=== PATIENT | male | born 1945 | race Caucasian/White ===

== ENCOUNTER → 2018-09-21 13:37 | Outpatient (CLI) | payer MEDICARE, BC, SELFPAY ==
[2018-09-21 19:17] LABS: Prostate Specific Antigen < 0.064 ng/mL (0.10-4.00)
== END ==
PROVIDERS: PCP Internal Medicine; Visit Provider Urology
DX: Z85.46 Personal history of malignant neoplasm of prostate (principal)
CPT/HCPCS: 36415; 84153

== ENCOUNTER → 2020-03-17 14:15 | Outpatient (CLI) | payer MEDICARE, SELFPAY ==
[2020-03-19 00:21] LABS: SARS CoV19 IgG Negative (Negative)
== END ==
PROVIDERS: PCP Internal Medicine; Referring Provider Internal Medicine; Visit Provider Internal Medicine
DX: Z03.818 Encounter for observation for suspected exposure to other biological agents ruled out (principal)
CPT/HCPCS: 36415; 86769

== ENCOUNTER → 2020-05-11 14:18 | Outpatient (CLI) | payer MEDICARE, SELFPAY ==
[2020-05-11 15:57] LABS: Prostate Specific Antigen < 0.064 ng/mL (0.10-4.00)
== END ==
PROVIDERS: PCP Internal Medicine; Referring Provider Urology; Visit Provider Urology
DX: Z85.46 Personal history of malignant neoplasm of prostate (principal)
CPT/HCPCS: 36415; 84153

== ENCOUNTER → 2021-01-17 14:14 | Outpatient (CLI) | payer MEDICARE, SELFPAY ==
[2021-01-17 15:22] LABS: Prostate Specific Antigen < 0.064 ng/mL (0.10-4.00)
== END ==
PROVIDERS: PCP Internal Medicine; Referring Provider Urology; Visit Provider Urology
DX: Z85.46 Personal history of malignant neoplasm of prostate (principal)
CPT/HCPCS: 36415; 84153

== ENCOUNTER → 2021-03-07 09:19 | Outpatient (CLI) | payer MEDICARE, SELFPAY ==
[2021-03-07 10:03] LABS: Alanine Aminotransferase 25 IU/L (<50); Albumin 3.9 g/dL (3.5-5.0); Albumin Globulin Ratio 1.5 (1.0-2.8); Alkaline Phosphatase 48 U/L (38-126); Aspartate Aminotransferase 35 IU/L (17-59); BUN Creatinine Ratio 16.5 (6-22); Bilirubin Total 0.8 mg/dL (0.2-1.3); Blood Urea Nitrogen 13 mg/dL (9-20); Calcium 9.4 mg/dL (8.4-10.2); Carbon Dioxide 30 mmol/L (22-32); Chloride 99 mmol/L (98-107); Cholesterol 158 mg/dL (140-199); Estimated Glomerular Filt Rate > 60.0 mL/min (>60); Globulin 2.6 g/dL (1.7-4.1); Glucose 129 mg/dL (80-110); HDL Cholesterol 79 mg/dL (40-60); HEMOLYSIS < 15 (0-50); LDL Cholesterol Calculated 62 mg/dL (<100); Sodium 135 mmol/L (137-145); Total Protein 6.5 g/dL (6.3-8.2); Triglycerides 87 mg/dL (35-150)
== END ==
PROVIDERS: PCP Internal Medicine; Referring Provider Internal Medicine; Visit Provider Internal Medicine
DX: E78.00 Pure hypercholesterolemia, unspecified (principal); I10 Essential (primary) hypertension
CPT/HCPCS: 36415; 80053; 80061

== ENCOUNTER → 2021-04-02 11:44 | Outpatient (CLI) | payer MEDICARE, SELFPAY ==
[2021-04-02 13:58] LABS: COVID19 -Nasal RAPID Negative (Negative)
== END ==
PROVIDERS: PCP Internal Medicine; Visit Provider Student in an Organized Health Care Education/Training Program
DX: Z20.822 Contact with and (suspected) exposure to COVID-19 (principal); Z01.812 Encounter for preprocedural laboratory examination
CPT/HCPCS: 87635; C9803

== ENCOUNTER 2021-04-04 10:26 | Day surgery (SDC) | payer MEDICARE, SELFPAY ==
--- NOTE | 2021-04-04 | PATH_ITS ---
[facility] Accession Number: [id number] . 01 Material submitted: . PART A: cecum - CECAL POLYP X2 PART B: colon - ASCENDING COLON POLYP X2 PART C: colon - TRANSVERSE COLON POLYP . 02 Diagnosis: A. Cecum, Polyp x2, Biopsies: Tubular adenoma in one of three fragments. Serrated lesion, favor sessile serrated adenoma. . B. Ascending Colon, Polyp x2, Biopsy: Tubular adenomas. . C. Transverse Colon, Polyp, Biopsy: Tubular adenoma. [facility] 04/09/2021 1123 Local . 02 Electronically signed: . Chandni Vazquez MD, Pathologist NPI- [id number] . 01 Gross description: . Part A: CECAL POLYP X2: Received in formalin are 3 fragment(s) of cyr, soft tissue measuring 0.7 x 0.5 x 0.3 cm to 0.5 x 0.3 x 0.2 cm submitted entirely in 1 cassette(s) Part B: ASCENDING COLON POLYP X2: Received in formalin is 1 fragment(s) of cyr, soft tissue measuring 0.4 x 0.3 x 0.2 cm submitted entirely in 1 cassette(s) Part C: TRANSVERSE COLON POLYP: Received in formalin are minute fragment(s) of cyr, soft tissue measuring 1.9 x 0.5 x 0.2 cm in aggregate submitted entirely in 1 cassette(s) /MILLY 04/05/2021 0808 Local . 02 Pathologist provided ICD-10: D12.0, D12.2, D12.3 . 02 CPT . 647258, [id number], [id number] Performed at: 01 [facility] [address] [place] [address] [address], [place], [place] [id number] MD Chad Chang MD Phone: [phone] Performed at: 02 [facility] [address] [place] [id number] MD Chandni Vazquez MD Phone: [phone]
[2021-04-04] MEDS: LACTATED RINGERS 1,000 ML 200 ML IV (11:14)
[2021-04-04 11:15] VITALS: BP 147/85; PULSE 82; RESP 16; TEMP 36.7; O2SAT 97; BMI 28.8
--- NOTE | 2021-04-04 12:05 | PM.HP.1 ---
History of Present Illness History of Present Illness Chief complaint: SCREENING COLONOSOCPY Patient History Medical History (Updated 04/04/21 @ 11:06 by Valentina Pacheco RN) Borderline diabetes Hyperlipidemia Hypertension Surgical History (Updated 04/04/21 @ 11:09 by Valentina Pacheco RN) History of prostatectomy History of tonsillectomy Family & Social History Family History (Updated 04/04/21 @ 11:07 by Valentina Pacheco RN) Mother Diabetes mellitus Breast cancer Father Parkinsons Social History: household members spouse Tobacco & Substance use: Smoking Status Never smoker alcohol intake current alcohol intake frequency 0-2 drinks per day Substance Use Type does not use Meds Home Medications and Allergies Home Medications Medication Instructions Recorded Confirmed Type rosuvastatin 5 mg PO BEDTIME 04/04/21 04/04/21 History valsartan-hydrochlorothiazide 1 tab PO BEDTIME 04/04/21 04/04/21 History Allergies Allergy/AdvReac Type Severity Reaction Status Date / Time No Known Drug Allergies Allergy Verified 04/04/21 11:06 Review of Systems Review of Systems ROS: Yes All systems reviewed with the patient and are negative except as otherwise documented Exam Vital Signs (past 8 hours): - 04/04/21 11:15 Temperature 98.0 F Pulse Rate 82 Respiratory Rate 16 Blood Pressure 147/85 H Pulse Oximetry 97 Oxygen Delivery Method Room Air Oxygen Flow Rate 0 Narrative Exam Narrative: Awake alert and oriented x3, pupils equal round reactive to light, oropharynx clear, heart regular rate and rhythm, lungs clear to auscultation bilaterally, abdomen nontender and nondistended, extremities without edema, no gross neurologic deficits noted Assessment & Plan Assessment & Plan narrative: Colon cancer screening for colonoscopy COVID-19 COVID-19 status: Negative
[2021-04-04] MEDS: fentaNYL 250 MCG/5 ML INJ IV (12:13)
[2021-04-04] MEDS: MIDAZOLAM 5 MG/5 ML VIAL IV (12:13)
--- NOTE | 2021-04-04 12:40 | PM.OP.ENDO ---
Operative Date/Time/Diagnoses Date of procedure: 04/04/21 Procedure & Clinicians Study performed: Colonoscopy with cold snare and cold forceps polypectomy Moderate conscious sedation was administered by the endoscopy nurse and supervised by the endoscopist. The following parameters were monitored: Oxygen saturation, heart rate, blood pressure, and response to care. 5 mg of midazolam and 100 mcg of fentanyl given. Indications: Personal history of colon polyps. Colon cancer screening. Last colonoscopy was 6-7 years ago. Procedure Notes Procedure in detail: Prior to the procedure, history and physical was performed, and patient medications and allergies were reviewed. Preprocedure nursing history and assessment was reviewed. Patient identification and proposed procedure were verified by the physician and nurse in the procedure room. The physical status of the patient was reassessed after the procedure. After informed consent was obtained including risks, benefits, and alternatives, the scope was passed under direct vision. Throughout the procedure, the patient's blood pressure, pulse, and oxygen saturations were monitored continuously. The colonoscope was introduced through the anus and advanced to the cecum as identified by the appendiceal orifice and ileocecal valve. The patient tolerated the procedure well. Bowel prep was deemed adequate to detect polyps greater than 5 mm. Perianal and digital rectal examinations were unremarkable. Retroflexion in the rectum was unrevealing. Multiple medium mouthed diverticula were noted in the sigmoid colon Three sessile polyps measuring 4-6 mm were removed from the cecum (2) and transverse colon with a cold snare and retrieved Two 2-3 mm sessile polyps were removed from the ascending colon with cold forceps and retrieved Impression: Sigmoid colon diverticulosis Three 4-6mm polyps removed from the cecum and transverse colon Two 2-3 mm polyps removed from the ascending colon Sedation minutes: 27 Complications: other (EBL minimal. No complications) Post-procedure Plan for aftercare: Follow-up pathology results Repeat colonoscopy at a date to be determined based on pathology results Resume home medications High fiber diet Patient has a contact number available for emergencies. The signs and symptoms of potential delayed complications were discussed with the patient. Return to normal activities tomorrow. Written discharge instructions were provided to the patient. Discharge home with escort
[2021-04-04 12:46] VITALS: BP 107/65; PULSE 66; RESP 12; TEMP 36.7; O2SAT 94
[2021-04-04 12:51] VITALS: BP 106/63; PULSE 71; RESP 16; O2SAT 97
[2021-04-04 12:56] VITALS: BP 117/74; PULSE 70; RESP 13; O2SAT 96
[2021-04-04 13:00] VITALS: BP 114/75; PULSE 69; RESP 12; TEMP 36.7; O2SAT 96
[2021-04-04 13:15] VITALS: BP 115/73; PULSE 68; RESP 15; TEMP 36.9; O2SAT 95
--- NOTE | 2021-04-04 13:15 | PM.HP.1 ---
History of Present Illness History of Present Illness Chief complaint: SCREENING COLONOSOCPY Patient History Medical History (Updated 04/04/21 @ 11:06 by Valentina Pacheco RN) Borderline diabetes Hyperlipidemia Hypertension Surgical History (Updated 04/04/21 @ 11:09 by Valentina Pacheco RN) History of prostatectomy History of tonsillectomy Family & Social History Family History (Updated 04/04/21 @ 11:07 by Valentina Pacheco RN) Mother Diabetes mellitus Breast cancer Father Parkinsons Social History: household members spouse Tobacco & Substance use: Smoking Status Never smoker alcohol intake current alcohol intake frequency 0-2 drinks per day Substance Use Type does not use Meds Home Medications and Allergies Home Medications Medication Instructions Recorded Confirmed Type rosuvastatin 5 mg PO BEDTIME 04/04/21 04/04/21 History valsartan-hydrochlorothiazide 1 tab PO BEDTIME 04/04/21 04/04/21 History Allergies Allergy/AdvReac Type Severity Reaction Status Date / Time No Known Drug Allergies Allergy Verified 04/04/21 11:06 Review of Systems Review of Systems ROS: Yes All systems reviewed with the patient and are negative except as otherwise documented Exam Vital Signs (past 8 hours): - 04/04/21 11:15 04/04/21 12:46 04/04/21 12:51 Temperature 98.0 F 98.1 F Pulse Rate 82 66 71 Respiratory Rate 16 12 16 Blood Pressure 147/85 H 107/65 106/63 Pulse Oximetry 97 94 97 04/04/21 12:56 04/04/21 13:00 Temperature 98.1 F Pulse Rate 70 69 Respiratory Rate 13 12 Blood Pressure 117/74 114/75 Pulse Oximetry 96 96 Oxygen Delivery Method Room Air Oxygen Flow Rate 0 Narrative Exam Narrative: Awake alert and oriented x3, pupils equal round reactive to light, oropharynx clear, heart regular rate and rhythm, lungs clear to auscultation bilaterally, abdomen nontender and nondistended, extremities without edema, no gross neurologic deficits noted Assessment & Plan Assessment & Plan narrative: History of colon polyps for colonoscopy today COVID-19 COVID-19 status: Negative
--- NOTE | 2021-04-04 13:31 | SUR.PHASEII ---
1315-Pt up and ambulating gait steady, iv dcd site clear, all dc instructions given and pt verbalized understanding. Pt getting dressed now
--- NOTE | 2021-04-04 13:32 | SUR.PHASEII ---
1325-Pt dcd in stable condition with all belongings, no complaints, wheeled out to curbside via wc
== END 2021-04-04 13:25 | disposition home or self-care (01) ==
PROVIDERS: PCP Internal Medicine; Referring Provider Internal Medicine; Visit Provider Internal Medicine
PROC: 0DJD8ZZ Inspection of Lower Intestinal Tract, Via Natural or Artificial Opening Endoscopic (ICD-10-PCS; CPT 45378; principal; 2021-04-04 11:30)
DX: Z12.11 Encounter for screening for malignant neoplasm of colon (principal); E78.5 Hyperlipidemia, unspecified; I10 Essential (primary) hypertension; K57.30 Diverticulosis of large intestine without perforation or abscess without bleeding; D12.0 Benign neoplasm of cecum; D12.2 Benign neoplasm of ascending colon; D12.3 Benign neoplasm of transverse colon
CPT/HCPCS: 45385; 45380; J2250; J3010

== ENCOUNTER 2022-08-15 09:14 | Emergency (ER) | payer MEDICARE, SELFPAY ==
[2022-08-15 09:22] VITALS: BP 189/94; PULSE 78; RESP 15; TEMP 36.8; O2SAT 97; BMI 29.6
--- NOTE | 2022-08-15 09:26 | DI.RAD.S_ITS ---
PROCEDURE: XR RIBS LT MIN 3V W CXR1V INDICATIONS: fall on left ribs TECHNIQUE: 2 views of the left ribs were acquired, along with a single view chest. COMPARISON: None. FINDINGS: Surgical changes and devices: None. Bones and chest wall: No fractures or dislocations. No suspicious bony lesions. Overlying soft tissues appear unremarkable. Lungs and pleura: No pleural effusions or pneumothorax. Lungs appear clear. Mediastinum: Mediastinal contours appear normal. Heart size is normal. IMPRESSION: No displaced rib fractures visualized. Dictated by: Anai Khanna M.D. on 08/15/2022 at 10:26 Approved by: Anai Khanna M.D. on 08/15/2022 at 10:27
--- NOTE | 2022-08-15 10:02 | ED_ITS ---
HPI - Chest Pain General Chief Complaint: Chest Pain Stated Complaint: Chest pain- thinks cracked rib after fall a wk ago Time Seen by Provider: 08/15/22 09:53 Source: patient Mode of arrival: Ambulatory Limitations: no limitations History of Present Illness HPI narrative: 77-year-old male who is here for evaluation of left-sided rib discomfort. One week ago he was in the shower. He slipped. He went down on 1 knee. And then hit the left side of his chest on the side of the tub. Reports no other injuries from the event. He states he has had continued discomfort since then. It does hurt when he lays on that side. It hurts when he takes a deep breath. No bruising over the area. Abdominal pain. No fevers. Related Data Home Medications Medication Instructions Recorded Confirmed rosuvastatin 5 mg tablet 5 mg PO BEDTIME 04/04/21 04/04/21 valsartan 160 1 tab PO BEDTIME 04/04/21 04/04/21 mg-hydrochlorothiazide 12.5 mg tablet Allergies Allergy/AdvReac Type Severity Reaction Status Date / Time No Known Drug Allergies Allergy Verified 08/15/22 09:27 Review of Systems Constitutional Constitutional: Reports system reviewed and no additional complaints, except as documented Cardiovascular Cardiovascular: Reports system reviewed and no additional complaints, except as documented Respiratory Respiratory: Reports system reviewed and no additional complaints, except as documented Gastrointestinal Gastrointestinal: Reports system reviewed and no additional complaints, except as documented Genitourinary Genitourinary: Reports system reviewed and no additional complaints, except as documented Musculoskeletal Musculoskeletal: Reports system reviewed and no additional complaints, except as documented Integumentary/Breasts Skin/Breast: Reports system reviewed and no additional complaints, except as documented Patient History Medical History Borderline diabetes Hyperlipidemia Hypertension Surgical History (Updated 04/04/21 @ 11:09 by Valentina Pacheco RN) History of prostatectomy History of tonsillectomy Family History (Updated 04/04/21 @ 11:07 by Valentina Pacheco RN) Mother Diabetes mellitus Breast cancer Father Parkinsons Social History household members: spouse Smoking Status: Never smoker alcohol intake: current Smoking Status: Never smoker alcohol intake frequency: 3 or more drinks per day Substance Use Type: does not use Exam Initial Vital Signs Initial Vital Signs: Vital Signs Temperature 98.3 F 08/15/22 09:22 Pulse Rate 78 08/15/22 09:22 Respiratory Rate 15 08/15/22 09:22 Blood Pressure 189/94 H 08/15/22 09:22 Pulse Oximetry 97 08/15/22 09:22 Oxygen Delivery Method 08/15/22 09:22 Const General: cooperative, healthy appearing and comfortable HENNM Head: normal to inspection and normocephalic Chest Chest: No crepitus and tenderness (Left-sided anterior lateral lower rib discomfort.) Resp Effort & Inspection: normal respiratory effort Auscultation: clear to auscultation bilaterally Cardio Rate: regular rate Back/Spine/Pelvis Thoracic/Lumbar Spine: No paraspinal tenderness Skin General: no rashes or lesions noted Neuro General: patient alert, patient awake and moves all extremities Extrem General: normal to inspection and capillary refill normal Psych Appearance: grossly normal and well kempt Course Orders Ordered: ED Orders 08/15/22 09:26 XR ribs LT min 3V w CXR1V Stat 08/15/22 09:36 EKG-12 Lead Stat Vital Signs Vital signs: Vital Signs - 8 hr 08/15/22 09:22 Temperature 98.3 F Pulse Rate 78 Respiratory Rate 15 Blood Pressure 189/94 H Pulse Oximetry 97 Oxygen Delivery Method Room Air MDM - Chest Pain Imaging Data rib x-ray: Radiologist's Impression: [address] [address] XRay Report Signed Patient: Osvaldo German MR#: [id number] : 1945 Acct:[id number] Age/Sex: 77 / M Date of Service: 08/15/22 Loc: ED Accession Number: [id number] ?? Procedure: XR ribs LT min 3V w CXR1V Ordering Provider: Jacob Aguilera D.O. PROCEDURE:? XR RIBS LT MIN 3V W CXR1V ? INDICATIONS:? fall on left ribs ? TECHNIQUE:? 2 views of the left ribs were acquired, along with a single view chest.? ? COMPARISON:? None. ? FINDINGS:? ? Surgical changes and devices:? None.? ? Bones and chest wall:? No fractures or dislocations.? No suspicious bony lesions.? Overlying soft tissues appear unremarkable.? ? Lungs and pleura:? No pleural effusions or pneumothorax.? Lungs appear clear.? ? Mediastinum:? Mediastinal contours appear normal.? Heart size is normal.? ? IMPRESSION:? No displaced rib fractures visualized. ? ? Dictated by: Anai Khanna M.D. on 08/15/2022 at 10:26 ? ? Approved by: Anai Khanna M.D. on 08/15/2022 at 10:27? ECG Data Attestation: I personally reviewed and interpreted this ECG as follows: Interpretation: Sinus rhythm Ventricular rate is 66 Normal axis Normal QRS Normal QTC No ST T wave changes MDM Narrative Medical decision making narrative: X-ray shows no definitive displaced rib fracture. I did discuss this with the patient. Informed him that there could be a nondisplaced fracture or could just be a contusion. His lung is unremarkable. His respiratory exam is unremarkable. EKG is unremarkable. No skin changes over the area. Discussed this with the patient. Discussed return precautions and follow-up instructions. He expressed understanding and agreement. Discharge Plan Departure Patient Disposition: Home Clinical Impression: Contusion of rib on left side Instructions: DI for Rib Contusion Activity Restrictions/Additional Instructions: There were no definitive fractures noted on the x-rays. Your lung and heart also appear well. Continue to take all of your medications as directed. Return to the emergency department for any new or worsening symptoms. Prescriptions: No Action rosuvastatin 5 mg tablet 5 mg PO BEDTIME valsartan-hydrochlorothiazide 160-12.5 mg tablet 1 tab PO BEDTIME Referrals: Abel Quiñones MD [Primary Care Provider] -
[2022-08-15 10:59] VITALS: BP 147/79; PULSE 63; RESP 18; O2SAT 96
== END 2022-08-15 11:00 | disposition home or self-care (01) ==
PROVIDERS: Emergency Provider Emergency Medicine; PCP Internal Medicine
DX: S20.212A Contusion of left front wall of thorax, initial encounter (principal); W18.2XXA Fall in (into) shower or empty bathtub, initial encounter; R07.9 Chest pain, unspecified
CPT/HCPCS: 71101; 93005; 93010; 99281; 99284

== ENCOUNTER → 2023-07-03 14:27 | Outpatient (CLI) | payer MEDICARE, SELFPAY ==
[2023-07-03 15:27] LABS: Hematocrit 41.9 % (41-53); Hemoglobin 14.1 g/dL (13.5-17.5); Mean Corpuscular HGB Conc 33.8 % (30-36); Mean Corpuscular Hemoglobin 32.4 PG (26-34); Mean Corpuscular Volume 95.9 fL (80-100); Platelet Count 319 X10^3/uL (150-400); Red Blood Cell Count 4.37 X10^6/uL (4.5-5.9); Red Cell Distribution Width 13.1 % (11.6-14.8)
[2023-07-03 15:53] LABS: Alanine Aminotransferase 23 IU/L (<50); Albumin Globulin Ratio 1.7 (1.0-2.8); Alkaline Phosphatase 47 U/L (38-126); Aspartate Aminotransferase 27 IU/L (17-59); BUN Creatinine Ratio 14.7 (6-22); Bilirubin Total 0.7 mg/dL (0.2-1.3); Blood Urea Nitrogen 11 mg/dL (9-20); Calcium 10.3 mg/dL (8.4-10.2); Carbon Dioxide 29 mmol/L (22-32); Chloride 100 mmol/L (98-107); Cholesterol 153 mg/dL (140-199); Estimated Glomerular Filt Rate > 60 mL/min (>60); Globulin 2.3 g/dL (1.7-4.1); Glucose 112 mg/dL (80-110); HDL Cholesterol 76 mg/dL (40-60); HEMOLYSIS < 15 (0-50); LDL Cholesterol Calculated 59 mg/dL (<100); Potassium 4.3 mmol/L (3.4-5.1); Sodium 136 mmol/L (137-145); Total Protein 6.3 g/dL (6.3-8.2); Triglycerides 88 mg/dL (35-150)
[2023-07-03 16:21] LABS: TSH w/ Reflex to FT4 2.17 uIU/mL (0.47-4.68)
[2023-07-03 16:29] LABS: Prostate Specific Antigen < 0.064 ng/mL (0.10-4.00)
[2023-07-03 16:38] LABS: Hemoglobin A1C% w Est Avg Glu 5.9 % (4.0-6.0)
== END ==
PROVIDERS: PCP Internal Medicine; Referring Provider Internal Medicine; Visit Provider Internal Medicine
DX: R73.01 Impaired fasting glucose (principal); E78.2 Mixed hyperlipidemia; Z85.46 Personal history of malignant neoplasm of prostate; I10 Essential (primary) hypertension
CPT/HCPCS: 36415; 80053; 80061; 83036; 84153; 84443; 85027

== ENCOUNTER 2023-11-08 17:29 | Emergency (ER) | payer MEDICARE, SELFPAY ==
[2023-11-08 17:40] VITALS: BP 156/80; PULSE 80; RESP 15; TEMP 36.8; O2SAT 98; BMI 29.6
--- NOTE | 2023-11-08 18:19 | ED_ITS ---
HPI - Fall <Umer Sumner PA-C - Last Filed: 11/08/23 18:24> General Chief Complaint: Fall Stated Complaint: lEFT KNEE INJURY Time Seen by Provider: 11/08/23 17:44 Source: patient Mode of arrival: Ambulatory History of Present Illness HPI Narrative: This is a 78-year-old male presents to the emergency department due to concerns for right knee infection. He slipped on his driveway 2 days ago where he scraped his right knee but is concerned with the purulent drainage in the slight redness around the open wound. Denies any fevers or any other concerning signs or symptoms. No significant pain to the bony parts of his knee. Related Data Home Medications Medication Instructions Recorded Confirmed ascorbic acid (vitamin C) 500 mg 500 mg PO DAILY 07/03/23 07/03/23 tablet multivitamin 1 tab PO DAILY 07/03/23 07/03/23 Previous Rx's Medication Instructions Recorded rosuvastatin 5 mg tablet 5 mg PO BEDTIME #90 tabs 07/03/23 valsartan 160 1 tab PO BEDTIME #90 tabs 07/03/23 mg-hydrochlorothiazide 12.5 mg tablet doxycycline hyclate 100 mg capsule 100 mg PO BID #14 caps 11/08/23 Allergies Allergy/AdvReac Type Severity Reaction Status Date / Time No Known Drug Allergies Allergy Verified 11/08/23 17:47 Review of Systems <TRACIE Amaro Last Filed: 11/08/23 18:24> Review of Systems Narrative: GENERAL: Denies chills, fatigue, malaise, fever, sweats. HEENT: Denies sinus pain, ear pain, sore throat, difficulty swallowing, dizziness. RESPIRATORY: Denies dyspnea, cough, wheezing, hemoptysis, sputum. CARDIOVASCULAR: Denies chest pain, palpitations, orthopnea, edema, GASTROINTESTINAL: Denies nausea, vomiting, abdominal pain, diarrhea, constipation, melena. : Denies dysuria, frequency, incontinence, hematuria, urinary retention. MUSCULOSKELETAL: denies weakness, joint pain, or bony pain SKIN: Right knee wound NEUROLOGIC: Denies weakness, headache, numbness, change in speech, confusion, seizures, incoordination. PSYCHIATRIC: No concerning psychosocial issues. 12 point review of systems is negative except for those stated above Patient History <Umer Sumner PA-C - Last Filed: 11/08/23 18:24> Medical History (Updated 11/08/23 @ 18:23 by Umer Sumner PA-C) Primary osteoarthritis involving multiple joints Overweight Impaired fasting glucose History of colonic polyps History of prostate cancer Mixed hyperlipidemia Essential hypertension Wears glasses Rheumatic fever (~1951) Chicken pox Hearing loss Borderline diabetes Surgical History History of surgery (~1981) Anesthesia History of prostatectomy (~2017) History of tonsillectomy (~1951) Family History Mother Diabetes mellitus Breast cancer Father Parkinsons Brother History of heart disease Sister Brain aneurysm Grandfather History of heart disease Grandmother History of heart disease Grandfather Accident 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 HEAD: Atraumatic. Normocephalic. EYES: Pupils equal round and reactive. Extraocular motions intact. No scleral icterus. No injection or drainage. ENT: Nose without bleeding, purulent drainage. Throat without erythema, tonsilla r hypertrophy or exudate. Airway patent. NECK: Trachea midline. Non tender EXTREMITIES: No edema or joint tenderness. NEURO: AOx3. SKIN: Superficial wounds of the anterior aspect of the left knee with some purulent drainage and discharge. Very minimal surrounding erythema. No surrounding bony tenderness to palpation Initial Vital Signs Initial Vital Signs: Vital Signs Temperature 98.3 F 11/08/23 17:40 Pulse Rate 80 11/08/23 17:40 Respiratory Rate 15 11/08/23 17:40 Blood Pressure 156/80 H 11/08/23 17:40 Pulse Oximetry 98 11/08/23 17:40 Oxygen Delivery Method Room Air 11/08/23 17:40 <Jacob Aguilera DO - Last Filed: 11/09/23 07:04> Initial Vital Signs Initial Vital Signs: Vital Signs Temperature 98.3 F 11/08/23 17:40 Pulse Rate 80 11/08/23 17:40 Respiratory Rate 15 11/08/23 17:40 Blood Pressure 156/80 H 11/08/23 17:40 Pulse Oximetry 98 11/08/23 17:40 Oxygen Delivery Method Room Air 11/08/23 17:40 Course <Umer Sumner PA-C - Last Filed: 11/08/23 18:24> Vital Signs Vital signs: Vital Signs - 8 hr 11/08/23 17:40 Temperature 98.3 F Pulse Rate 80 Respiratory Rate 15 Blood Pressure 156/80 H Pulse Oximetry 98 Oxygen Delivery Method Room Air <Jacob Aguilera DO - Last Filed: 11/09/23 07:04> Vital Signs Vital signs: Vital Signs - 8 hr 11/08/23 17:40 Temperature 98.3 F Pulse Rate 80 Respiratory Rate 15 Blood Pressure 156/80 H Pulse Oximetry 98 Oxygen Delivery Method Room Air MDM - Fall <Umer Sumner PA-C - Last Filed: 11/08/23 18:24> MDM Narrative Medical decision making narrative: ED course: This is a 78-year-old male presents emergency department due to concerns for infected left knee. There was no surrounding joint or bony tenderness and no x-ray ordered. Wound does appear slightly infected with some minimal spreading erythema around the open wound as well as some purulent drainage. We will prescribed doxycycline. CC: Left knee wound Complicating co-morbidities: Borderline diabetes Data collected from: Previous notes Medical records reviewed: Patient was last seen a year and a half ago due to a rib contusion. Differential considered, but not limited to: Septic arthritis, cellulitis, infected wound, fracture Exam documented above, pertinent findings include: Signs of infected wound with purulent drainage and erythema Lab Test results independently reviewed as above. Pertinent findings: None obtained Imaging studies independently reviewed: None obtained Scores Used: None MIPS Elements: None Consultations: None Treatments: None Re-evaluations: None Discussion: Discussed plan with the patient was comfortable with the plan Diagnosis: Infected wound Disposition: see below, along with detailed discharge instructions that have been reviewed with patient as well as indications for ED re-evaluation and additional outpatient follow up Discharge Plan Departure Patient Disposition: Home Clinical Impression: Infected wound Activity Restrictions/Additional Instructions: Thank you for coming to the [facility] Emergency Department today. It does appear that the wound is slightly infected. Please take the oral antibiotics as prescribed. I recommend soap and water to clean the wound. Please return to the emergency department if you develop any significant spreading redness, significant pain or any other concerning signs or symptoms. I [facility] the [facility] in [place]. I hope you feel better soon. Please follow up with your primary care provider within a week if your symptoms continue. If you do not have a primary care provider please contact the [facility] Resource line at [phone]. They will ask some questions about your medical history and help you get set up with a provider in the community. Prescriptions: New doxycycline hyclate 100 mg capsule 100 mg PO BID Qty: 14 0RF No Action ascorbic acid (vitamin C) 500 mg tablet 500 mg PO DAILY multivitamin Tablet 1 tab PO DAILY rosuvastatin 5 mg tablet 5 mg PO BEDTIME Qty: 90 3RF valsartan-hydrochlorothiazide 160-12.5 mg tablet 1 tab PO BEDTIME Qty: 90 3RF Referrals: James Douglass MD [Primary Care Provider] - Stand Alone Forms: Patient Portal/API ED Sign-out <Jacob Aguilera DO - Last Filed: 11/09/23 07:04> Cosign ED Attending Cosaiature Attestation: Dr Aguilera Co-Sign Statement: I was available for consultation during this patient's emergency department visit. This chart is signed by myself for administrative purposes only. I did not have direct contact with this patient during this visit. They were seen independently by the APC.
--- NOTE | 2023-11-08 18:28 | PC.NURSE ---
seen and assessed by provider without RN involvement
== END 2023-11-08 18:29 | disposition home or self-care (01) ==
PROVIDERS: Emergency Provider Physician Assistant Medical; PCP Internal Medicine
DX: S80.912A Unspecified superficial injury of left knee, initial encounter (principal); W01.0XXA Fall on same level from slipping, tripping and stumbling without subsequent striking against object, initial encounter
CPT/HCPCS: 99281; 99282

== ENCOUNTER → 2024-11-29 15:02 | Outpatient (CLI) | payer MEDICARE, SELFPAY ==
[2024-11-29 16:14] LABS: Hemoglobin A1C% w Est Avg Glu 5.8 % (4.0-6.0)
[2024-11-29 16:41] LABS: Aspartate Aminotransferase 31 IU/L (17-59); Blood Urea Nitrogen 17 mg/dL (9-20); Calcium 11.6 mg/dL (8.4-10.2); Carbon Dioxide 28 mmol/L (22-32); Chloride 102 mmol/L (98-107); Cholesterol 169 mg/dL (140-199); Estimated Glomerular Filt Rate > 60 mL/min (>60); Glucose 132 mg/dL (80-110); HDL Cholesterol 80 mg/dL (40-60); HEMOLYSIS < 15 (0-50); LDL Cholesterol Calculated 57 mg/dL (<100); Potassium 4.3 mmol/L (3.4-5.1); Sodium 136 mmol/L (137-145); Triglycerides 158 mg/dL (35-150)
[2024-11-29 17:10] LABS: Prostate Specific Antigen < 0.064 ng/mL (0.10-4.00)
== END ==
PROVIDERS: PCP Internal Medicine; Referring Provider Internal Medicine; Visit Provider Internal Medicine
DX: R73.01 Impaired fasting glucose (principal); E78.2 Mixed hyperlipidemia; Z85.46 Personal history of malignant neoplasm of prostate
CPT/HCPCS: 36415; 80048; 80061; 83036; 84153; 84450

== ENCOUNTER → 2024-12-09 08:44 | Outpatient (CLI) | payer MEDICARE, SELFPAY ==
[2024-12-10 09:40] LABS: Calcium 10.7 mg/dL (8.6-10.2); Parathyroid Hormone, Intact 119 pg/mL (15-65)
== END ==
PROVIDERS: PCP Internal Medicine; Referring Provider Internal Medicine; Visit Provider Internal Medicine
DX: E83.52 Hypercalcemia (principal); Z85.46 Personal history of malignant neoplasm of prostate; E78.2 Mixed hyperlipidemia; R73.01 Impaired fasting glucose
CPT/HCPCS: 36415; 82043; 82310; 82570; 83970

== ENCOUNTER → 2025-01-17 09:28 | Outpatient (CLI) | payer MEDICARE, SELFPAY ==
--- NOTE | 2025-01-17 09:29 | DI.NM.S_ITS ---
PROCEDURE: NM PARATHYROID RADIOPHARMACEUTICAL: 27.1 mCi Tc-99m sestamibi IV. INDICATIONS: hyperparathyroidism TECHNIQUE: After intravenous administration of Tc-99m sestamibi, anterior planar images of the neck and mediastinum were obtained at approximately 10 minutes and 2-3 hours. SPECT images were acquired after the 10 minute planar images. COMPARISON: None. FINDINGS AND IMPRESSION: On the early images, bilobed thyroid is seen, with overall normal morphology. On delayed images, there is slightly asymmetric radiotracer retention projecting over the right thyroid lobe, representing a small adenoma or hyperplasia. No suspicious ectopic focus identified elsewhere. Dictated by: Mahesh Corbett M.D. on 01/17/2025 at 12:54 Approved by: Mahesh Corbett M.D. on 01/17/2025 at 13:01
--- NOTE | 2025-01-17 09:29 | DI.US.S_ITS ---
PROCEDURE: US THYROID INDICATIONS: hyperparathyroidism TECHNIQUE: Real-time scanning was performed of the thyroid gland, with image documentation. COMPARISON: [place], [place], [place] PARATHYROID, 01/17/2025, 9:42. FINDINGS: Thyroid: Right lobe measures 3.6 x 1.3 x 0.9 cm. Left lobe measures 2.9 x 1.4 x 1.0 cm. Isthmus is 0.4 cm thick. Echotexture is homogeneous. There is a 7 x 7 x 5 focus inferolateral to the right thyroid lobe without increased vascularity. This appears to correspond to the focus asymmetric radiotracer retention projecting over the right thyroid lobe on nuclear medicine scan. 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 Dictated by: Haley Wilson M.D. on 01/17/2025 at 16:46 Approved by: Haley Wilson M.D. on 01/17/2025 at 16:48
== END ==
PROVIDERS: PCP Internal Medicine; Referring Provider Internal Medicine; Visit Provider Internal Medicine
DX: E21.3 Hyperparathyroidism, unspecified (principal); E83.52 Hypercalcemia
CPT/HCPCS: 76536; 78070; A9500

== ENCOUNTER → 2025-01-21 15:13 | Outpatient (CLI) | payer MEDICARE, SELFPAY ==
--- NOTE | 2025-01-21 15:14 | DI.RAD.S_ITS ---
PROCEDURE: XR DEXA AXIAL SKELETON INDICATIONS: hyperparathyroidism COMPARISON: None. FINDINGS: Lumbar Spine: Bone mineral density 1.074 g/cm2, T score 0.2. Left Femoral Neck: Bone mineral density 0.691 g/cm2, T score -1.4. Left Hip: Bone mineral density 0.873 g/cm2, T score -0.6. Fracture Risk Calculation (when applicable): 10-year fracture risk of a major osteoporotic fracture 9.7 percent and of a hip fracture 4.0 percent. (T score greater or equal to -1.0 to: NORMAL) (T score from -1.1 to -2.4: OSTEOPENIA) (T score less than or equal to -2.5: OSTEOPOROSIS) IMPRESSION: Osteopenia---recommend repeat DEXA in 2-3 years for reassessment. Follow-up guidelines as follows: Osteoporosis: Consider a repeat DEXA and Vertebral Fracture Assessment (VFA) exam in 2 years or sooner if medically necessary, to reassess this patient's status. Osteopenia: Consider a repeat DEXA in 2-3 years to reassess this patient's status, or if there is a new clinical indication. Normal: Consider a repeat DEXA in 5 years or sooner, or if there is a new clinical indication. All treatment decisions require clinical judgment and consideration of individual patient factors, including patient preferences, comorbidities, previous drug use, risk factors not captured in the FRAX model (e.g., frailty, falls, vitamin D deficiency, increased bone turnover, interval significant decline in bone density ) and possible under- or over-estimation of fracture risk by FRAX. In addition, the NOF Guide recommends that FDA-approved medical therapies be considered in postmenopausal women and men age >= 50 years with a: * Hip or vertebral (clinical or morphometric) fracture * T-score of <=-2.5 at the spine or hip * Ten-year fracture probability by FRAX of >= 3% for hip fracture or >=20% for major osteoporotic fracture. Dictated by: Holden Baltazar M.D. on 01/22/2025 at 7:04 Approved by: Holden Baltazar M.D. on 01/22/2025 at 7:05
== END ==
PROVIDERS: PCP Internal Medicine; Referring Provider Internal Medicine; Visit Provider Internal Medicine
DX: M85.852 Other specified disorders of bone density and structure, left thigh (principal); E21.3 Hyperparathyroidism, unspecified
CPT/HCPCS: 77080

== ENCOUNTER 2025-05-19 08:24 | Day surgery (SDC) | payer MEDICARE, SELFPAY ==
--- NOTE | 2025-05-19 | PATH_ITS ---
[facility] Accession Number: [id number] No. of containers..02 Tissue . 01 Material submitted: . PART A: colon - COLON, ASCENDING POLYP X 2 PART B: colon - COLON, TRANSVERSE POLYP X 2 . 01 Diagnosis: Part A: COLON, ASCENDING POLYP X 2: Tubular adenomas. . Part B: COLON, TRANSVERSE POLYP X 2: Tubular adenomas. STO 05/30/2025 1256 Local . 01 Electronically signed: . Chad Chang MD, Pathologist NPI- [id number] . 01 Gross description: . Part A: COLON,ASCENDING POLYP X 2: Received in formalin are 3 fragment(s) of cyr, soft tissue measuring 0.4 x 0.4 x 0.2 cm to 1.0 x 0.6 x 0.3 cm submitted entirely in 1 cassette(s) . Part B: COLON,TRANSVERSE POLYP X 2: Received in formalin are multiple fragment(s) of cyr, soft tissue measuring 0.1 x 0.1 x 0.1 cm to 0.6 x 0.6 x 0.2 cm submitted entirely in 1 cassette(s) /ALEXA 05/30/2025 1256 Local . 01 Pathologist provided ICD-10: D12.2, D12.3 . 01 CPT . 200685, 301205 Specimen Comment: A courtesy copy of this report has been sent to [phone] Performed at: [address] [id number] MD Chad Chang MD Phone: [phone]
[2025-05-19 08:46] VITALS: BP 142/81; PULSE 79; RESP 15; TEMP 36.6; O2SAT 96
[2025-05-19] MEDS: LACTATED RINGERS 1,000 ML 42 ML IV (08:55)
--- NOTE | 2025-05-19 09:18 | PM.HP.IH.1 ---
History of Present Illness History of Present Illness Date Patient Seen: 05/19/25 Time Patient Seen: 09:18 Chief complaint: Screening Colonoscopy Narrative: Osvaldo is a 79-year-old man with a history of colon polyps. His last colonoscopy was here in 2020 with [facility]. Several small tubular adenomas were removed. He has also had polyps removed prior colonoscopies. No family history of colon cancer. [facility] Medical History (Updated 01/18/25 @ 16:00 by James Douglass MD) Parathyroid adenoma Hyperparathyroidism Hypercalcemia Primary osteoarthritis involving multiple joints Overweight Impaired fasting glucose History of colonic polyps History of prostate cancer Mixed hyperlipidemia Essential hypertension Wears glasses Rheumatic fever (~1951) Chicken pox Hearing loss Borderline diabetes Surgical History History of surgery (~1981) Anesthesia History of prostatectomy (~2017) History of tonsillectomy (~1951) Family History (Updated 01/19/25 @ 13:08 by Renee Vargas RN) Mother Diabetes mellitus Breast cancer Father Parkinsons Grandfather History of heart disease Grandmother History of heart disease Grandfather Accident 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), 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, 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 Smoking Status: Never smoker alcohol intake: current Meds Home Medications and Allergies Home Medications ?Medication ?Instructions ?Recorded ?Confirmed ?Type ascorbic acid (vitamin C) 500 mg 500 mg PO DAILY 07/03/23 01/18/25 History tablet multivitamin 1 tab PO DAILY 07/03/23 01/18/25 History rosuvastatin 5 mg tablet 5 mg PO BEDTIME #90 tabs 11/29/24 05/19/25 Rx valsartan 160 1 tab PO BEDTIME #90 tabs 11/29/24 05/19/25 Rx mg-hydrochlorothiazide 12.5 mg tablet Allergies Allergy/AdvReac Type Severity Reaction Status Date / Time No Known Drug Allergies Allergy Verified 05/19/25 08:41 Exam Vital Signs (past 8 hours): - 05/19/25 08:46 Temperature 97.8 F Pulse Rate 79 Respiratory Rate 15 Blood Pressure 142/81 H Pulse Oximetry 96 Oxygen Delivery Method Room Air Oxygen Delivery Method Room Air Const General: healthy appearing Assessment & Plan Assessment and plan (1) History of colonic polyps: Status: Acute Plan Colonoscopy Time-Based Coding :: [TOTAL MINUTES] spent with patient and on the chart (including review of chart, obtaining history, exam, reviewing outside data, placing orders, documenting exam and treatment plan, and counseling patient) on [DATE]. 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
[2025-05-19 10:15] VITALS: BP 94/58; PULSE 67; RESP 16; TEMP 36.1; O2SAT 97
--- NOTE | 2025-05-19 10:16 | PM.OP.COLON ---
Operative Date/Time/Diagnoses Date of procedure: 05/19/25 Time of procedure: 10:16 Pre-op diagnosis: History of polyps Post-op diagnosis: same Procedure & Clinicians Study performed: Colonoscopy Same procedure(s) as scheduled: Yes Surgeon: Lencho Paris Anesthesia Type: MAC +/- Procedure Notes Procedure in detail: Surgeon: Lencho Paris MD Anesthesia: Chandni Jacques CRNA Procedure: The patient was brought to the endoscopy suite, placed in left lateral decubitus position. The patient was connected to monitoring devices. A time-out was performed. Sedation was administered. Once the patient was adequately sedated, a digital rectal exam was performed and was normal. The scope was then inserted and advanced to the cecum where the appendiceal orifice was identified and photographed. It was difficult to get to the cecum and required abdominal pressure and repositioning to reach the cecum. The scope was then slowly withdrawn over greater than 6 minutes. The mucosa was thoroughly inspected. There were two small polyps in the ascending colon removed with a cold snare and sent together. There were two small polyps in the transverse colon removed with a cold snare and sent together. There was pandiverticulosis. The scope was retroflexed in the rectum. No other abnormalities were found. The scope was straightened and removed. The patient was awakened and brought to recovery. Scope withdrawal time: 28 minutes Sedation time: 35 minutes EBL: 5 mL Findings: Pandiverticulosis, two small ascending polyps and two small transverse polyps Post-procedure Disposition: PACU
[2025-05-19 10:20] VITALS: BP 99/62; PULSE 61; RESP 20; O2SAT 98
[2025-05-19 10:25] VITALS: BP 120/60; PULSE 59; RESP 18; O2SAT 98
[2025-05-19 10:30] VITALS: BP 125/62; PULSE 59; RESP 16; TEMP 36.2; O2SAT 98
== END 2025-05-19 10:40 | disposition home or self-care (01) ==
PROVIDERS: PCP Internal Medicine; Referring Provider Surgery; Visit Provider Surgery
PROC: 0DJD8ZZ Inspection of Lower Intestinal Tract, Via Natural or Artificial Opening Endoscopic (ICD-10-PCS; CPT 45378; principal; 2025-05-19 10:00)
DX: Z12.11 Encounter for screening for malignant neoplasm of colon (principal); Z86.0100 Personal history of colon polyps, unspecified; K57.30 Diverticulosis of large intestine without perforation or abscess without bleeding; D12.2 Benign neoplasm of ascending colon; D12.3 Benign neoplasm of transverse colon
CPT/HCPCS: 45385; J2704

== ENCOUNTER → 2025-09-08 14:32 | Outpatient (CLI) | payer MEDICARE, SELFPAY ==
[2025-09-08 15:31] LABS: Blood Urea Nitrogen 12 mg/dL (9-20); Calcium 10.9 mg/dL (8.4-10.2); Carbon Dioxide 27 mmol/L (22-32); Chloride 100 mmol/L (98-107); Estimated Glomerular Filt Rate > 60 mL/min (>60); Glucose 121 mg/dL (70-99); HEMOLYSIS < 15 (0-50); Potassium 4.1 mmol/L (3.4-5.1); Sodium 133 mmol/L (137-145)
== END ==
LOC: LAB 14:35
PROVIDERS: PCP Internal Medicine; Referring Provider Otolaryngology; Visit Provider Otolaryngology
DX: E21.3 Hyperparathyroidism, unspecified (principal)
CPT/HCPCS: 36415; 80048; 83970